=== PATIENT | male | born 1950 | race African-American/Black ===

== ENCOUNTER 2017-07-02 09:14 | Emergency (ER) | payer OTHER ==
[2017-07-02 09:19] VITALS: RESP 18
--- NOTE | 2017-07-02 09:36 | EDPHY ---
General <Vipul Corona - Last Filed: 07/02/17 09:50> - History Smoking Status: Never smoked <Malvin Stephens - Last Filed: 07/02/17 14:27> Narrative: CHIEF COMPLAINT: Flank and abdominal pain HISTORY OF PRESENT ILLNESS: Patient complains of 2 days history of left-sided abdominal and flank pain.. Gradual onset. Constant duration. It is worse with palpation of the area. Radiates into the groin and now into the left leg. It is starting to radiate into the right leg. He has no pain in the low back centrally. He has no urinary complaints. No fever. No vomiting. No trauma or injury. No travel surgery. He has no history of abdominal pathology or diagnoses of any kind. He has attempted no medications. He has no saddle anesthesia. No incontinence of bowel or bladder. No retention of bowel or bladder. No weakness of the lower extremities. No other associated complaints or modifying factors. REVIEW OF SYSTEMS: Ten systems reviewed and are negative unless otherwise noted in the HPI PCP: Dr. Shrestha SPECIALISTS: None PAST MEDICAL HISTORY: Denies any medical history PAST SURGICAL HISTORY: Appendectomy remotely SOCIAL HISTORY: Nonsmoker. Occasional alcohol. No illicit substances. Works on [employer] as a [employer] FAMILY HISTORY: Noncontributory EXAMINATION General Appearance: Alert, no distress Head: normocephalic, atraumatic Eyes: Pupils equal and round, no conjunctival pallor or injection ENT, Mouth: Mucous membranes moist Neck: Normal inspection, supple, non-tender Respiratory: Lungs are clear to auscultation. No wheezing, rhonchi or crackles Cardiovascular: Regular rate and rhythm. No murmur Gastrointestinal: Abdomen is soft and nondistended. There is mild tenderness to the left lower quadrant. No right lower quadrant tenderness. No tympany. No rigidity. No guarding. No CVA tenderness. Back: No soft tissue tenderness, no bony abnormalities. No crepitus step-off or deformity. No midline tenderness at any level. Neurological: A&O, nonfocal, normal gait. Patellar reflexes symmetric. Skin: Warm and dry, no rash. No petechiae or purpura Extremities: Nontender, no pedal edema. There is pain in the left lower quadrant and left flank with active range of motion of the left lower extremity but not passive. Range of motion is symmetric in all 4 limbs. Psychiatric: Mood and affect normal DIFFERENTIAL DIAGNOSES: Including but not limited to so as injury, diverticulitis, colitis, ureteral stone, renal colic, UTI, cystitis, lumbar radiculopathy MDM: 9:40 a.m. Vague left lower quadrant and left-sided abdominal pain that is reproducible. It is radiating down the leg and starting to radiate down the right leg. He has no midline tenderness. Exam is somewhat vague for etiology. Suspect the possibility of diverticulitis and left psoas muscle pathology as the highest on my differential. I discussed the case with Dr. Corona, he will examine the patient as well. Laboratory studies and urine have been ordered. 9:54 a.m. Patient has been evaluated by Dr. Corona. He is in agreement with my examination and feels that the patient would best be suited with an MRI of the lumbar spine and the left hip. I agree with Chloe, and These have been ordered. 1:10 p.m. Notified by radiologist Dr. Rich. MRI findings discussed as documented. Significant for degenerative disc with L3-L4 [id number] disc bulge. No emergent neurosurgery consultation recommended. MRI of hip is still pending interpretation. 2:05 p.m. Contacted by radiologist Dr. Rich. MRI of the left hip reveals mild degenerative changes. No other acute findings. 2:25 p.m. Patient re-evaluated an MRI results discussed. There is no evidence of acute cord compression at this time. We discussed discharge home with short course of steroids, muscle relaxant and narcotic. I would like him to follow up with Neurosurgery when he returns from his trip. I would like him to present to the nearest emergency department for any incontinence of bowel or bladder, retention of bowel or bladder, saddle anesthesia. He is comfortable this plan and discharged home stable condition. (Malvin Stephens) Medical Decision Makin: I assessed this patient in conjunction with JILLIAN Stephens. This is a healthy 67 y/o male who presents with left hip and back pain for the last 2 days. He describes his pain as "achy" and constant and located primarily just above his left anterior superior iliac spine. Initially, his pain was not worse with movement, but after sitting in the car yesterday the pain began radiating to his left lateral thigh and caused a limp. His pain is now worse with sitting and lying down, which caused difficulty sleeping last night. He denies recent trauma, illness, fever, vomiting, abdominal pain, incontinence, weakness, or paresthesias. 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 I can replicate his pain with flexion and external rotation of his left hip. His pain is exacerbated with straight leg raise. His abdomen is benign. I recommended a lumbar spine and left hip MRI. (Vipul Corona) - Diagnostics Imaging Results: Imaging Impressions Lower Extremity MRI 07/02/17 09:53 Impression: Minimal early degenerative change in the left hip with mild fraying of the anterior superior labrum. Results called and discussed with Malvin Stephens PA-C, at 1404 hours 02 July 2017. Lumbar Spine MRI 07/02/17 09:53 Impression: Multilevel degenerative disk and degenerative joint disease lumbar spine. The level of more significant neural foraminal narrowing is at L3-L4 with an asymmetry to the bulge versus additional left posterolateral protrusion causing moderate to severe left neural foraminal narrowing. Please see detailed description by level above. Results called and discussed with Malvin Stephens PA-C, at 1309 hours 02 July 2017. - Objective Vital Signs: Initial Vital Signs Temperature (C) 98.4 F 07/02/17 09:15 Heart Rate 71 07/02/17 09:15 Respiratory Rate 18 07/02/17 09:15 Blood Pressure 162/82 H 07/02/17 09:15 O2 Sat (%) 96 07/02/17 09:15 O2 Delivery Mode Room Air Allergies/Adverse Reactions: No Known Allergies Allergy (Unverified 07/02/17 09:19) Home Medications: Medication Instructions Recorded Cyclobenzaprine [Flexeril 10 MG 10 mg PO TID PRN #15 tab 07/02/17 (*)] Hydrocodone/APAP 5/325 [[place] 1 - 2 tab PO Q4H PRN #13 tab 07/02/17 5/325 (*)] predniSONE [Deltasone] 60 mg PO DAILY #15 tablet 07/02/17 Laboratory Results: Laboratory Results 07/02/17 09:50 07/02/17 09:50 07/02/17 07/02/17 07/02/17 10:20 09:50 09:50 WBC 5.18 10^3/uL 10^3/uL (3.80-9.50) RBC 4.95 10^6/uL 10^6/uL (4.40-6.38) Hgb 16.1 g/dL g/dL (13.7-17.5) Hct 46.1 % % (40.0-51.0) MCV 93.1 fL fL (81.5-99.8) MCH 32.5 pg pg (27.9-34.1) MCHC 34.9 g/dL g/dL (32.4-36.7) RDW 11.3 % L % (11.5-15.2) Plt Count 196 10^3/uL 10^3/uL (150-400) MPV 9.8 fL fL (8.7-11.7) Neut % (Auto) 62.1 % % (39.3-74.2) Lymph % (Auto) 30.3 % % (15.0-45.0) Clayton % (Auto) 6.4 % % (4.5-13.0) Eos % (Auto) 0.6 % % (0.6-7.6) Baso % (Auto) 0.4 % % (0.3-1.7) Nucleat RBC Rel Count 0.0 % % (0.0-0.2) Absolute Neuts (auto) 3.22 10^3/uL 10^3/uL (1.70-6.50) Absolute Lymphs (auto) 1.57 10^3/uL 10^3/uL (1.00-3.00) Absolute Monos (auto) 0.33 10^3/uL 10^3/uL (0.30-0.80) Absolute Eos (auto) 0.03 10^3/uL 10^3/uL (0.03-0.40) Absolute Basos (auto) 0.02 10^3/uL 10^3/uL (0.02-0.10) Absolute Nucleated RBC 0.00 10^3/uL 10^3/uL (0-0.01) Immature Gran % 0.2 % % (0.0-1.1) Immature Gran # 0.01 10^3/uL 10^3/uL (0.00-0.10) Sodium 140 mEq/L mEq/L (134-144) Potassium 3.9 mEq/L mEq/L (3.5-5.2) Chloride 102 mEq/L mEq/L (97-110) Carbon Dioxide 29 mEq/l mEq/l (22-31) Anion Gap 9 mEq/L mEq/L (8-16) BUN 14 mg/dL mg/dL (7-23) Creatinine 1.0 mg/dL mg/dL (0.7-1.3) Estimated GFR > 60 Glucose 64 mg/dL L mg/dL (70-100) Calcium 9.9 mg/dL mg/dL (8.5-10.4) Total Bilirubin 0.9 mg/dL mg/dL (0.1-1.4) Conjugated Bilirubin 0.2 mg/dL mg/dL (0.0-0.5) Unconjugated Bilirubin 0.7 mg/dL mg/dL (0.0-1.1) AST 23 IU/L IU/L (17-59) ALT 31 IU/L IU/L (21-72) Alkaline Phosphatase 60 IU/L IU/L (38-126) Creatine Kinase 102 IU/L IU/L (0-224) Total Protein 7.0 g/dL g/dL (6.3-8.2) Albumin 4.1 g/dL g/dL (3.5-5.0) Lipase 52 IU/L IU/L (23-300) Urine Color YELLOW Urine Appearance CLEAR Urine pH 6.0 (5.0-7.5) Ur Specific Marion 1.018 (1.002-1.030) Urine Protein NEGATIVE (NEGATIVE) Urine Ketones NEGATIVE (NEGATIVE) Urine Blood NEGATIVE (NEGATIVE) Urine Nitrate NEGATIVE (NEGATIVE) Urine Bilirubin NEGATIVE (NEGATIVE) Urine Urobilinogen NEGATIVE EU EU (0.2-1.0) Ur Leukocyte Esterase NEGATIVE (NEGATIVE) Urine RBC Urine WBC Ur Epithelial Cells Urine Mucus Urine Glucose NEGATIVE (NEGATIVE) 07/02/17 09:36 WBC RBC Hgb Hct MCV MCH MCHC RDW Plt Count MPV Neut % (Auto) Lymph % (Auto) Clayton % (Auto) Eos % (Auto) Baso % (Auto) Nucleat RBC Rel Count Absolute Neuts (auto) Absolute Lymphs (auto) Absolute Monos (auto) Absolute Eos (auto) Absolute Basos (auto) Absolute Nucleated RBC Immature Gran % Immature Gran # Sodium Potassium Chloride Carbon Dioxide Anion Gap BUN Creatinine Estimated GFR Glucose Calcium Total Bilirubin Conjugated Bilirubin Unconjugated Bilirubin AST ALT Alkaline Phosphatase Creatine Kinase Total Protein Albumin Lipase Urine Color Urine Appearance Urine pH Ur Specific Marion Urine Protein Urine Ketones Urine Blood Urine Nitrate Urine Bilirubin Urine Urobilinogen Ur Leukocyte Esterase Urine RBC 1-3 /hpf /hpf (0-3) Urine WBC 1-3 /hpf /hpf (0-3) Ur Epithelial Cells TRACE /lpf /lpf (NONE-1+) Urine Mucus TRACE /lpf /lpf (NONE-1+) Urine Glucose Departure <Vipul Corona - Last Filed: 07/02/17 09:50> <Malvin Stephens - Last Filed: 07/02/17 14:27> - Departure Disposition: Home, Routine, Self-Care Clinical Impression: Lumbar radiculopathy Degenerative disc disease Qualifiers: Spinal region: lumbosacral Qualified Code(s): M51.37 - Other intervertebral disc degeneration, lumbosacral region Condition: Good Instructions: Degenerative Disc Disease (ED), Lower Back Exercises (ED), Lumbar Radiculopathy (ED) Additional Instructions: 1. Medications as prescribed to completion 2. Follow up with Neurosurgery for definitive care 3. Return to ER for worsening pain, numbness, tingling, weakness, incontinence as discussed Referrals: VEDA SHRESTHA [Primary Care Provider] - As per Instructions Seamus Chávez MD [Medical Doctor] - As per Instructions Prescriptions: Cyclobenzaprine [Flexeril 10 MG (*)] 10 mg PO TID PRN #15 tab PRN Reason: Spasms Hydrocodone/APAP 5/325 [[place] 5/325 (*)] 1 - 2 tab PO Q4H PRN #13 tab PRN Reason: Pain, Moderate predniSONE [Deltasone] 60 mg PO DAILY #15 tablet Report Scribed for: Vipul Corona Report Scribed by: Lily Juarez Date of Report: 07/02/17 Time of Report: 09:50 <Vipul Corona - Last Filed: 07/02/17 09:50>
[2017-07-02 09:59] LABS: % IMMATURE GRANULYOCYTES 0.2 % (0.0-1.1); ABSOLUTE IMMATURE GRANULOCYTES 0.01 10^3/uL (0.00-0.10); ADD DIFF? NO; ADD MORPH? NO; ADD SCAN? NO; ATYPICAL LYMPHOCYTE FLAG 0 (0-99); FRAGMENT RBC FLAG 0 (0-99); HEMATOCRIT 46.1 % (40.0-51.0); HEMOGLOBIN 16.1 g/dL (13.7-17.5); LEFT SHIFT FLG 0 (0-99); LIPEMIA HEMOLYSIS FLAG 90 (0-99); MEAN CELL HEMOGLOBIN 32.5 pg (27.9-34.1); MEAN CELL HEMOGLOBIN CONCENTR. 34.9 g/dL (32.4-36.7); MEAN CELL VOLUME 93.1 fL (81.5-99.8); MEAN PLATELET VOLUME 9.8 fL (8.7-11.7); PLATELET CLUMPS FLAG 0 (0-99); PLATELET COUNT 196 10^3/uL (150-400); RED BLOOD CELL COUNT 4.95 10^6/uL (4.40-6.38); RED CELL DISTRIBUTION WIDTH 11.3 % (11.5-15.2)
[2017-07-02 10:23] LABS: ALANINE AMINOTRANSFERASE 31 IU/L (21-72); ALBUMIN 4.1 g/dL (3.5-5.0); ALKALINE PHOSPHATASE 60 IU/L (38-126); ANION GAP 9 mEq/L (8-16); ASPARTATE AMINOTRANSFERASE 23 IU/L (17-59); BILIRUBIN,TOTAL 0.9 mg/dL (0.1-1.4); BILIRUBIN-CONJUGATED 0.2 mg/dL (0.0-0.5); BILIRUBIN-UNCONJUGATED 0.7 mg/dL (0.0-1.1); CALCIUM 9.9 mg/dL (8.5-10.4); CARBON DIOXIDE 29 mEq/l (22-31); CHLORIDE 102 mEq/L (97-110); GLOMERULAR FILTRATION RATE > 60; GLUCOSE 64 mg/dL (70-100); POTASSIUM 3.9 mEq/L (3.5-5.2); SODIUM 140 mEq/L (134-144)
[2017-07-02 10:27] LABS: COLOR YELLOW; LEUKOCYTE ESTERASE,URINE NEGATIVE (NEGATIVE); NITRITE,URINE NEGATIVE (NEGATIVE)
[2017-07-02 10:54] VITALS: TEMP 98.1
[2017-07-02 11:03] LABS: MUCUS TRACE /lpf (NONE-1+)
[2017-07-02] MEDS ORDERED: GADOBUTROL 10 ML VIAL IVP ONE (11:57)
[2017-07-02 14:39] VITALS: BP 155/76; PULSE 81; O2SAT 96
== END 2017-07-02 14:48 | disposition home or self-care (01) ==
DX: M51.37 Other intervertebral disc degeneration, lumbosacral region (principal); M54.16 Radiculopathy, lumbar region
CPT/HCPCS: A9585